=== PATIENT | male | born 1990 | race Caucasian/White ===

== ENCOUNTER 2024-06-27 20:32 | Emergency (ER) | payer MEDICAID, SELFPAY ==
[2024-06-27 20:38] VITALS: BP 119/69; PULSE 93; RESP 14; TEMP 37.3; O2SAT 99
--- NOTE | 2024-06-27 20:53 | ED.GENADUL_ITS ---
Discharge Plan Disposition Patient Disposition: Home Condition: Stable Discharge Details Clinical Impression: Allergic dermatitis due to poison francisco ED Provider: Nam Burr Home Meds and New Rx's Prescriptions: New clindamycin HCl 150 mg capsule 450 mg PO TID 7 Days Qty: 63 0RF prednisone 20 mg tablet See Rx Instructions .ROUTE .COMPLEX Qty: 26 0RF Rx Instructions: Take 60 mg (3 tablets) daily for 4 days, then 40 mg (2 tablets) daily for 4 days, then 20 mg (1 tablet) daily for 4 days, then 10 mg (half a tablet) daily for 4 days. Discharge Instructions Additional Instructions: Try to make sure you wash all your clothing that was exposed to poison francisco You can try taking Benadryl at night though it is not shown to significantly improve itching If not improving in 2 weeks follow-up with either your primary care provider or express care If you can wear a lot of new symptoms such as high fevers or severe worsening pain return to the emergency department for reevaluation. HPI General Mode of arrival: ambulatory . Date/Time Provider Initiated Documentation: 06/27/24 20:35 . Limitations to Documentation: no limitations . Information obtained by: patient . History of Present Illness 34 year old M presents to the emergency department with the chief complaint of Poison francisco rash, described as moderate, Patient started experiencing this day(s) (2) and it has been constant. No relieving factors improve symptom(s), No exacerbating factors reported . Patient notes no other symptoms.. Related Data Home Medications ?Medication ?Instructions ?Recorded ?Confirmed clindamycin HCl 150 mg capsule 450 mg (3 x 150 mg) PO TID 7 days 06/27/24 #63 caps prednisone 20 mg tablet See Rx Instructions .Route 06/27/24 .COMPLEX #26 tabs Previous Rx's ?Medication ?Instructions ?Recorded clindamycin HCl 150 mg capsule 450 mg (3 x 150 mg) PO TID 7 days 06/27/24 #63 caps prednisone 20 mg tablet See Rx Instructions .Route 06/27/24 .COMPLEX #26 tabs Allergies Allergy/AdvReac Type Severity Reaction Status Date / Time No Known Allergies Allergy Unverified 06/27/24 20:36 General Stated Complaint: RashLesion SHAREE: 4 Review of Systems All systems reviewed & are unremarkable except as noted in HPI and below Constitutional Constitutional: Denies chills, Denies fever(s) and Denies weakness Cardiovascular Cardiovascular: Denies chest pain and Denies dyspnea Respiratory Respiratory: Denies cough and Denies dyspnea Gastrointestinal Gastrointestinal: Denies abdominal pain, Denies nausea and Denies vomiting Musculoskeletal Musculoskeletal: Denies joint swelling Integumentary/Breasts Skin/Breast: Reports rash Neurologic Neurologic: Denies weakness Exam Const General: no acute distress Orientation: alert HENMT Head: normal to inspection Ears: external ears normal General nose exam: external nose normal Mouth: moist mucous membranes Eyes General: appearance normal, both eyes and all related structures Neck Neck: normal visual inspection Resp Effort & Inspection: normal respiratory effort and able to speak in complete sentences Cardio Rate: regular rate Skin Rashes: rashes noted Neuro General: patient alert and patient oriented x3 Extrem General: full ROM and capillary refill normal Psych Mental Status: mental status grossly normal Course Vital Signs Vital signs: Vital Signs Temperature 37.3 C 06/27/24 20:38 Pulse 93 H 06/27/24 20:38 Respiratory Rate 14 06/27/24 20:38 Blood Pressure 119/69 06/27/24 20:38 Pulse Oximetry 99 06/27/24 20:38 Temperature 37.3 C 06/27/24 20:38 Temperature Source Temporal Artery Scan 06/27/24 20:38 Pulse 93 H 06/27/24 20:38 Respiratory Rate 14 06/27/24 20:38 Respiratory Effort Normal 06/27/24 20:41 Blood Pressure 119/69 06/27/24 20:38 Blood Pressure Position Sitting 06/27/24 20:38 Pulse Oximetry 99 06/27/24 20:38 Oxygen Delivery Method Room Air 06/27/24 20:38 Oxygen Flow Rate 0 06/27/24 20:38 Pain Level 5 06/27/24 20:38 Medical Decision Making 34-year-old male who denies significant chronic medical history comes in with diffuse rash on his arms and torso after being exposed to poison fracnisco. He says he was helping clear billy from one of his friends yard to [place] and was doing this for quite some time until he realized there is poison francisco on the billy. He then developed a intensely itchy rash on his torso and arms so came here. He has no fevers, no difficulty breathing no mucous membrane lesions. He appears well on exam. He does have diffuse bullae on both arms and erythematous plaques and some vesicles scattered on his arms and also his torso. He has no facial lesions, does have some mild erythema was lower legs as well. Given his history of reported poison francisco exposure and exam consistent with poison francisco exposure dermatitis, we will start him on oral prednisone with a taper, there is no significant erythema but given the diffuse nature of his rash and how much itching is causing and concerned he will develop a secondary infection from this so we will also cover him with clindamycin. He is stable for discharge, advised to follow-up with either his primary care express care if not improving return precautions given Differential Diagnosis Differential Diagnosis: Allergic dermatitis, poison francisco Quality:SDOH Health Related Social Needs: No Data to Display [facility] All Active Problems (Updated 06/27/24 @ 20:56 by Nam Burr MD) Allergic dermatitis due to poison farncisco (Acute) Social History Smoking/Tobacco Use Status: Current every day Tobacco Type: cigarettes Years smoked: 15 Smoking risk assessment performed?: Yes Alcohol Intake: current Alcohol Intake frequency: a few times a week Alcohol type: beer PAWSS Have you Been Recently Intoxicated or Drunk Within the Last 30 days?: No Have you Ever Experienced Previous Episodes of Alcohol Withdrawal?: No Have you ever Experienced Withdrawal Seizures?: No Have you ever Experienced Delirium Tremens(DT)s?: No Have you ever undergone Alcohol Rehabilitation Treatment (i.e, inpt ot outpatient treatment programs)?: No Have you ever Experienced Blackouts?: No Have you ever Combined Alcohol with other Downers within the last 90 days?: No Have you ever Combined Alcohol with any other Substance of Abuse during the last 90 days?: No Positive Blood Alcohol level on Presentation? [PCS.BAL]: No Evidence of Increased Autonomic Activity (i.e. HR>120, tremor, sweating, agitation, nausea)?: No Result: 0
[2024-06-27] MEDS: Clindamycin 150 MG CAP 450 MG PO (20:59)
[2024-06-27] MEDS: predniSONE 20 MG TAB 60 MG PO (20:59)
== END 2024-06-27 21:05 | disposition home or self-care (01) ==
LOC: ER 21:24
PROVIDERS: Emergency Provider Emergency Medicine
DX: L23.7 Allergic contact dermatitis due to plants, except food (principal)
CPT/HCPCS: 99283; 99282; J7512